=== PATIENT | female | born 1985 | race Caucasian/White ===

== ENCOUNTER 2020-04-15 07:01 | Inpatient (IN) | payer BC ==
[2020-04-15] VITALS (38 sets, daily range): BP systolic 112–134; BP diastolic 51–78; PULSE 62–100; TEMP 97.8–98.9
[~2020-04-15] VITALS: Ht 172.7 cm; Wt 86.4 kg
--- NOTE | 2020-04-15 06:55 | NUR ---
0655- PT. AMBULATORY TO THE UNIT WITH BY HER SIDE FOR INDUCTION OF LABOR THIS MORNING. PATIENT IS A 34 Y/O AT 39.[address] OF [address] HAQUE. PT. REPORTS GFM, NO LOF, NO CTX AND NO BLEEDING. 0700- EFM AND TOCO ON AND TRACING. VITALS TAKEN, ASSESSMENT COMPLETED, IV STARTED, CONSENTS SIGNED. PLAN OF CARE FOR THE DAY DISCUSSED AND PATIENT VERBALIZED UNDERSTANDING WITH NO QUESTIONS. CALL LIGHT WITHIN REACH.
[~2020-04-15 07:01] MED LIST: COLACE 100100 MG/CAP PO; MOTRIN 600600 MG/TAB PO; PRENATAL PO
[2020-04-15] MEDS ORDERED: COLACE 100100 MG/CAP PO (07:26)
--- NOTE | 2020-04-15 08:20 | NUR ---
0820- DR. HAQUE ON UNIT. REVIEWING CHART AND STRIP AND THEN WILL GO TO BEDSIDE FOR SONO. 0822- THIS RN TO BEDSIDE TO INCREASE PITOCIN. 0825- DR. HAQUE TO BEDSIDE WITH BEDSIDE ULTRASOUND. SONO INDICATED HEAD WAS VERTEX PER PROVIDER. DISCUSSED PLAN OF CARE FOR THE DAY WITH PATIENT. DISCUSSED AFTER PATIENT IS COMFORTABLE WITH EPIDURAL HE WOULD BREAK WATER DUE TO SVE BEING SO UNCOMFORTABLE FOR PATIENT. PLAN IS TO TRY AROUND 11-1130 IF PATIENT IS COMFORTABLE WITH EPIDURAL. PROVIDER ASKED THIS RN TO GIVE HIM A CALL WHEN SHE HAS HER EPIDURAL AND HE WILL COME OVER, CHECK HER AND BREAK WATER. PATIENT AGREED AND VERBALIZED UNDERSTANDING AND DENIED FURTHER QUESTIONS OR NEED. CALL LIGHT WITHIN REACH.
[2020-04-15 08:22] LABS: BASO % 0.3 % (0.0-2.0); EOS # 0.1 (0.0-0.7); EOS % 0.9 % (0-4.0); GRAN # 5.4 (1.4-6.5); GRAN % 72.3 % (42.2-75.2); HEMOGLOBIN 11.6 g/dl (12.5-16.0); LYMPH # 1.4 (1.2-3.4); MEAN CELL VOLUME 91 fl (80.0-100.0); MEAN CORPUSCULAR HEMOGLOBIN 30 pg (27.0-31.0); MEAN CORPUSCULAR HGB CONC 33 g/dl (33.0-37.0); MEAN PLATELET VOLUME 11.7 fl (7.4-10.4); MONO # 0.5 (0.1-0.6); MONO % 7.1 % (1.7-9.3); PLATELET COUNT 200 K/mm3 (130-400); REDCELL DISTRIBUTION WIDTH-CV 13.5 % (11.5-14.5)
[2020-04-15 08:24] LABS: HEMATOCRIT 35.3 % (37.0-47.0)
--- NOTE | 2020-04-15 11:40 | NUR ---
1140- THIS RN TO BEDSIDE TO HELP PATIENT GET READY FOR EPIDURAL PLACEMENT. MATERNAL 02 PLACED ON PATIENT. PATIENT HELPED INTO THE SITTING POSITION ON THE SIDE OF THE BED. 1142- RENATA CHAUHAN TO BEDSIDE FOR EPIDURAL PLACEMENT. EXPLAINED PROCEDURE AND ANSWERED ANY QUESTIONS. 1155- TEST DOSE, SEE ANESTHESIA RECORD. 1200- THIS RN HELPS PATIENT IN TO BRWL POSITION. PATIENT TOLERATED PROCEDURE WELL. THIS RN REMAINS AT BEDSIDE.
--- NOTE | 2020-04-15 14:20 | NUR ---
1420- THIS RN CALLED PHYSICIAN TO UPDATE ON DELIVERY. SEE PHYSICIAN NOTIFICATION. THIS RN THEN WENT TO BEDSIDE AND STAYED AT BEDSIDE PATIENT VERBALIZED FEELING MORE PRESSURE. 1430- DR. HAQUE ON UNIT. 1434- DR. HAQUE TO BEDSIDE FOR DELIVERY. 1435- DR. HAQUE CHECKED PATIENT AND VERBALIZED HER BEING COMPLETE AND IT TIME TO HAVE A BABY. THIS RN BEGAN BREAKING DOWN THE BED AND CALLED STAFF TO NOTIFY THEM FOR DELIVERY. 1436- MENDOZA REMOVED. 250 ML NOTED FOR OUTPUT. 1445- OF MALE . DAD CUT THE CORD. INFANT THEN TO NURSERY NURSE AND WARMER TO BE CLEANED UP AND MEASURE PER THE PARENTS REQUEST. PITOCIN SHUT OFF. 1447- OF PLACENTA. FUNDUS MASSAGED TO FIRM BY PROVIDER. PITOCIN STARTED PER PROTOCOL AT 333ML/HR. 2ND DEGREE NOTED BY PROVIDER AND REPAIRS STARTED. INFANT PLACED TO MOTHERS CHEST FOR SKIN TO SKIN BY NURSERY NURSE. 1500- REPAIRS FINISHED, BED PUT BACK TOGETHER, PATIENT CLEANED UP AND NEW PERIPAD AND ICEPACK TO PERINEUM. FUNDUS FIRM WITH SMALL AMOUNT OF BLOOD NOTED. RECOVERY STARTED.
[2020-04-16 02:45] VITALS: BP 118/77; PULSE 75; TEMP 98.1
[2020-04-16 07:00] VITALS: BP 120/70; PULSE 84; TEMP 98
[2020-04-16 08:45] LABS: HEMOGLOBIN 12.2 g/dl (12.5-16.0)
[2020-04-16 08:53] LABS: HEMATOCRIT 36.6 % (37.0-47.0)
[2020-04-16 12:11] VITALS: BP 114/65; PULSE 74; TEMP 98.1
== END 2020-04-16 16:10 | disposition home or self-care (01) | DRG 807 ==
LOC: LDR 07:01 → OB 14:32
PROVIDERS: ADMIT Obstetrics & Gynecology
PROC: 10E0XZZ Delivery of Products of Conception, External Approach (ICD-10-PCS; principal; 2020-04-15)
PROC: 0KQM0ZZ Repair Perineum Muscle, Open Approach (ICD-10-PCS; 2020-04-15)
PROC: 10907ZC Drainage of Amniotic Fluid, Therapeutic from Products of Conception, Via Natural or Artificial Opening (ICD-10-PCS; 2020-04-15)
DX: O34.593 Maternal care for other abnormalities of gravid uterus, third trimester (principal); Z37.0 Single live birth; O99.62 Diseases of the digestive system complicating childbirth; Z3A.39 39 weeks gestation of pregnancy; K42.9 Umbilical hernia without obstruction or gangrene; O70.1 Second degree perineal laceration during delivery
CPT/HCPCS: J2590; J7120